=== PATIENT | male | born 1930 | race Native Hawaiian/Other Pacific Islander ===

== ENCOUNTER 2016-03-28 08:17 | Outpatient (CLI) | payer OTHER ==
[~2016-03-28 08:17] MED LIST: CIALIS20 MG OR; DONE5TAB PO; EC-81 ASPIRIN81 MG OR; GABA300C2 PO; GLUCOPHAGE1000 MG PO; LISI5TAB10 PO; SIMV10TA PO; VIT B12 ER1000 MCG INJ
[2016-03-28 08:53] LABS: PLATELET COUNT 300 K/uL (142-355)
[2016-03-28 09:52] LABS: POTASSIUM 4.7 mmol/L (3.6-5.2)
== END 2016-03-28 19:57 | disposition home or self-care (01) ==
LOC: LABW 08:17
PROVIDERS: Internal Medicine
DX: E11.9 Type 2 diabetes mellitus without complications (principal)
CPT/HCPCS: 36415; 80053; 80061; 81000; 82043; 82570; 83036; 84439; 84443; 85027

== ENCOUNTER 2017-11-09 14:23 | Emergency (ER) | payer OTHER ==
[~2017-11-09] VITALS: Ht 170.2 cm; Wt 81.6 kg
[2017-11-09 14:30] VITALS: BP 124/71; TEMP 98.1
[2017-11-09 15:34] LABS: PLATELET COUNT 290 K/uL (142-355)
[2017-11-09 15:55] LABS: POTASSIUM 4.3 mmol/L (3.6-5.2)
== END 2017-11-09 17:20 | disposition home or self-care (01) ==
LOC: ED 14:23
DX: S42.192A Fracture of other part of scapula, left shoulder, initial encounter for closed fracture (principal); S42.402A Unspecified fracture of lower end of left humerus, initial encounter for closed fracture; W18.39XA Other fall on same level, initial encounter; Y92.89 Other specified places as the place of occurrence of the external cause
CPT/HCPCS: 36415; 80053; 85027; 99283

== ENCOUNTER 2018-06-03 08:20 | Outpatient (CLI) | payer OTHER ==
[2018-06-03 09:09] LABS: PLATELET COUNT 298 K/uL (142-355)
[2018-06-03 09:16] LABS: POTASSIUM 4.4 mmol/L (3.6-5.2)
== END 2018-06-03 19:09 | disposition home or self-care (01) ==
LOC: LABW 08:20
PROVIDERS: Internal Medicine
DX: R25.2 Cramp and spasm (principal); E11.9 Type 2 diabetes mellitus without complications
CPT/HCPCS: 36415; 80048; 83540; 83735; 84443; 85027

== ENCOUNTER 2018-11-25 07:58 | Outpatient (CLI) | payer OTHER ==
[2018-11-25 08:53] LABS: PLATELET COUNT 293 K/uL (142-355)
[2018-11-25 09:13] LABS: POTASSIUM 5.2 mmol/L (3.6-5.2)
== END 2018-11-25 21:48 | disposition home or self-care (01) ==
LOC: LABW 07:58
PROVIDERS: Internal Medicine
DX: E11.9 Type 2 diabetes mellitus without complications (principal)
CPT/HCPCS: 36415; 80053; 80061; 83036; 84439; 84443; 85027

== ENCOUNTER 2019-04-22 11:37 | Emergency (ER) | payer OTHER ==
[~2019-04-22] VITALS: Ht 175.3 cm; Wt 83.0 kg
[2019-04-22 11:57] VITALS: TEMP 98.8
[2019-04-22 15:42] LABS: PLATELET COUNT 271 K/uL (142-355)
[2019-04-22 15:46] LABS: POTASSIUM 4.7 mmol/L (3.6-5.2)
[2019-04-22 16:57] VITALS: BP 118/63
== END 2019-04-22 17:00 | disposition home or self-care (01) ==
LOC: ED 11:37
PROVIDERS: Family Medicine
DX: J06.9 Acute upper respiratory infection, unspecified (principal); R05 Cough; J40 Bronchitis, not specified as acute or chronic; R06.2 Wheezing
CPT/HCPCS: 80053; 83880; 85027; 87502; 87651; 93005; 94664; 99283

== ENCOUNTER 2019-05-04 07:38 | Outpatient (CLI) | payer OTHER ==
[2019-05-04 08:23] LABS: PLATELET COUNT 361 K/uL (142-355); POTASSIUM 4.5 mmol/L (3.6-5.2)
== END 2019-05-04 20:52 | disposition home or self-care (01) ==
LOC: LABW 07:38
PROVIDERS: Internal Medicine
DX: E11.9 Type 2 diabetes mellitus without complications (principal); I10 Essential (primary) hypertension
CPT/HCPCS: 36415; 80053; 80061; 81000; 83036; 84439; 84443; 85027

== ENCOUNTER 2019-11-07 09:16 | Outpatient (CLI) | payer OTHER ==
[2019-11-07 09:52] LABS: PLATELET COUNT 297 K/uL (142-355)
[2019-11-07 10:14] LABS: POTASSIUM 4.1 mmol/L (3.6-5.2)
== END 2019-11-07 19:11 | disposition home or self-care (01) ==
LOC: LABW 09:16
PROVIDERS: Internal Medicine
DX: E11.9 Type 2 diabetes mellitus without complications (principal)
CPT/HCPCS: 36415; 80053; 80061; 81000; 83036; 84439; 84443; 85027

== ENCOUNTER 2020-02-21 13:18 | Outpatient (CLI) | payer OTHER | END 2020-02-21 20:01 | disposition home or self-care (01) | LOC: MRI 13:18 | PROVIDERS: ATTEND Internal Medicine | DX: R51.9 Headache, unspecified (principal); M50.90 Cervical disc disorder, unspecified, unspecified cervical region ==

== ENCOUNTER 2020-03-28 09:57 | Outpatient (CLI) | payer OTHER | END 2020-03-28 19:35 | disposition home or self-care (01) | LOC: RAD 09:57 | PROVIDERS: ATTEND Specialist | DX: M54.81 Occipital neuralgia (principal); M54.2 Cervicalgia ==

== ENCOUNTER 2020-05-03 08:24 | Outpatient (CLI) | payer OTHER ==
[2020-05-03 08:52] LABS: PLATELET COUNT 286 K/uL (142-355)
[2020-05-03 09:45] LABS: POTASSIUM 4.2 mmol/L (3.6-5.2)
== END 2020-05-03 21:04 | disposition home or self-care (01) ==
LOC: LABW 08:24
PROVIDERS: ATTEND Internal Medicine
DX: R55 Syncope and collapse (principal); I10 Essential (primary) hypertension; E11.9 Type 2 diabetes mellitus without complications
CPT/HCPCS: 36415; 80053; 80061; 81000; 83036; 84439; 84443; 85027; 85379

== ENCOUNTER 2020-05-15 07:30 | Outpatient (CLI) | payer OTHER | END 2020-05-15 19:27 | disposition home or self-care (01) | LOC: CT 07:30 | PROVIDERS: ATTEND Internal Medicine | DX: R55 Syncope and collapse (principal) ==

== ENCOUNTER 2020-05-16 13:27 | Outpatient (CLI) | payer OTHER | END 2020-05-16 21:13 | disposition home or self-care (01) | LOC: RESP 13:27 | PROVIDERS: ATTEND Specialist | DX: R55 Syncope and collapse (principal) | CPT/HCPCS: 93005 ==

== ENCOUNTER 2020-11-08 07:52 | Outpatient (CLI) | payer OTHER ==
[2020-11-08 08:49] LABS: POTASSIUM 4.3 mmol/L (3.6-5.2)
[2020-11-08 08:50] LABS: PLATELET COUNT 309 K/uL (142-355)
== END 2020-11-08 20:03 | disposition home or self-care (01) ==
LOC: LABW 07:52
PROVIDERS: ATTEND Internal Medicine
DX: N18.4 Chronic kidney disease, stage 4 (severe) (principal); E11.22 Type 2 diabetes mellitus with diabetic chronic kidney disease
CPT/HCPCS: 36415; 80053; 81000; 82043; 82306; 82330; 82570; 83036; 83735; 83970; 84100; 84155; 85027

== ENCOUNTER 2021-03-06 14:41 | Outpatient (CLI) | payer OTHER ==
[2021-03-06 14:55] LABS: PLATELET COUNT 321 K/uL (142-355)
[2021-03-06 15:13] LABS: POTASSIUM 3.8 mmol/L (3.6-5.2)
== END 2021-03-06 19:47 | disposition home or self-care (01) ==
LOC: LAB 14:41
PROVIDERS: ATTEND Internal Medicine
DX: E11.9 Type 2 diabetes mellitus without complications (principal)
CPT/HCPCS: 80053; 80061; 83036; 84439; 84443; 85027

== ENCOUNTER 2021-04-07 06:49 | Emergency (ER) | payer OTHER ==
[2021-04-07] VITALS (17 sets, daily range): BP systolic 117–148; BP diastolic 59–89; TEMP 98.1
[~2021-04-07] VITALS: Ht 175.3 cm; Wt 63.5 kg
[2021-04-07 08:26] LABS: PLATELET COUNT 376 K/uL (142-355)
[2021-04-07 08:38] LABS: POTASSIUM 3.3 mmol/L (3.6-5.2)
[2021-04-08] VITALS: BP 143/89
[2021-04-08 01:00] VITALS: BP 157/85
[2021-04-08 02:00] VITALS: BP 157/85
[2021-04-08 03:00] VITALS: BP 151/86
[2021-04-08 03:45] VITALS: BP 141/92; TEMP 97.9
== END 2021-04-08 03:45 | disposition still patient (30) ==
LOC: ED 06:49 → MED/SURG 17:15 → ED 17:15
PROVIDERS: Emergency Medicine Emergency Medical Services
DX: U07.1 COVID-19 (principal); J12.82 Pneumonia due to coronavirus disease 2019; R09.02 Hypoxemia; R77.8 Other specified abnormalities of plasma proteins
CPT/HCPCS: 36415; 80053; 84484; 85027; 85379; 87635; 93005; 96360; 96361; 96365; 96375; 99284; J0696; J2920; J2930; U0003